=== PATIENT | female | born 1995 | race African-American/Black ===

== ENCOUNTER 2022-12-13 06:28 | Observation (INO) | payer OTHER, SELFPAY ==
[2022-12-13] VITALS (29 sets, daily range): BP systolic 92–131; BP diastolic 36–71; PULSE 88–133; RESP 20; TEMP 36.6; O2SAT 89–100; BMI 41.2
--- NOTE | ~2022-12-13 | US_ITS ---
US OB follow up DATE: 12/13/2022 10:19 INDICATION: Evaluate growth, TIFFANIE and placenta. TECHNIQUE: Real-time imaging and Doppler analysis COMPARISON: None FINDINGS: Live sutton intrauterine gestation, fetus in longitudinal lie, vertex presentation with heart rate of 148 bpm. Anterior placenta without evidence of previa. Amniotic fluid index measures 16.4 cm, within normal range. (5th percentile TIFFANIE: 8.6 cm; 95th percent ile TIFFANIE: 24.2 cm.) Head circumference 28.56 cm; 31 weeks 3 days Biparietal diameter 7.80 cm; 31 weeks 2 days Abdominal circumference 27.15 cm; 31 weeks 2 days Femur length 6.18 cm; 32 weeks 0 days Composite age by Hadlock formula is 31 weeks 4 days +/- 2 weeks 1 day with LILIBETH of 02/10/2023 compared to 02/05/2023 by LMP. Estimated weight is 1779 +/- -267 g. Estimated weight-GP: 18.1% Femur length/BPD 79.25, within normal range of 71.0-87.0 Head circumference/abdominal circumference 1.05, within normal range of 0.96-1.15 Femur length/abdominal circumference 22.76, within normal range of 20.00-24.00 Femur length/head circumference 21.64, slightly above normal range of 19.19-21.30 IMPRESSION: Normal amniotic fluid index of 16.4 cm Anterior placenta, no previa Vertex presentation Estimated gestational age by Hadlock formula is 31 weeks 4 days +/- 2 weeks 1 day with LILIBETH of 02/11/20 23 Estimated weight 1779 +/- 267 g Reviewed, dictated and finalized at [facility]. Reviewed, dictated and finalized at [facility]. IMPRESSION: Normal amniotic fluid index of 16.4 cm Anterior placenta, no previa Vertex presentation Estimated gestational age by Hadlock formula is 31 weeks 4 days +/- 2 weeks 1 d ay with LILIBETH of 02/10/2023 Estimated weight 1779 +/- 267 g
--- NOTE | 2022-12-13 07:22 | OBADM ---
This patient, Bradley Dietz, admitted to the OB room Labor/Delivery/Recovery 106 for observation. Patient/family oriented to hospital policies and general routines including ID bracelet, bed and alarms, visiting hours, pain management, procedures, bathroom and other care routines, personal items, smoking policy, room service/diet, and visiting hours. Patient/Family are encouraged to report perceived risks to care and to ask questions if they do not understand what they are told or what they should do.
[2022-12-13 09:13] LABS: Basophils Percent Auto 0.4 % (0.2-1.2); Eosinophils Absolute Auto 0.1 K/mm3 (0-0.3); Eosinophils Percent Auto 1.7 % (0-4.4); Hematocrit 32.7 % (37.0-47.0); Hemoglobin 10.5 g/dL (12.0-15.0); Immature Granulocyte Absolute 0.07 K/mm3 (0.00-0.031); Immature Granulocyte Percent A 0.8 % (0-0.5); Lymphocytes Absolute Auto 2.67 K/mm3 (0.9-3.2); Mean Corpuscular HGB Conc 32.1 g/dl (32-36); Mean Corpuscular Hemoglobin 28.9 pg (26-34); Mean Corpuscular Volume 90.1 fl (80-100); Mean Platelet Volume 10.3 fl (7.4-10.4); Monocytes Absolute Auto 0.6 K/mm3 (0.1-0.6); Monocytes Percent Auto 7.1 % (2.6-8.5); Neutrophils Absolute Auto 4.8 K/mm3 (1.3-6.7); Platelet Count Result 261 k/mm3 (150-375); Red Blood Count 3.63 M/mm3 (4.2-5.4); White Blood Count 8.3 K/mm3 (4.5-10.0)
[2022-12-13 09:50] LABS: HIV 1/2 Ab P24 Ag Result Negative (Negative)
[2022-12-13 09:58] LABS: Appearance Urine Cloudy (Clear); Bacteria Urine None Seen /hpf; Bilirubin Urine Negative (Negative); Blood Urine Negative (Negative); Color Urine Yellow (Yellow); Glucose Urine UA Negative (Negative); Ketones Urine 2+ mg/dL (Negative); Leukocyte Esterase Ur Trace LEU/UL (Negative); Need Manual Microscopic Reviewed; Nitrate Urine Negative (Negative); Non Pathogenic Casts 0-2; Protein Urine Trace mg/dL (Negative); Specific Grav Ur 1.025 (1.001-1.035); Squamous Epithelial Cell Urine Few /hpf (Few); WBC Urine 0-5 /hpf; pH Urine 6.5 (5.0-9.0)
[2022-12-13 09:59] LABS: Add Urine Microscopic? YES
[2022-12-13 10:44] LABS: Amphetamine Screen Urine Negative (Negative); Barbiturate Screen Urine Negative (Negative); Benzodiazepines Screen Urine Negative (Negative); Cannabinoid Screen Urine Negative (Negative); Cocaine Screen Urine Negative (Negative); Methadone Screen Urine Negative (Negative); Opiate Screen Urine Negative (Negative); Phencyclidine Screen Urine Negative (Negative)
[2022-12-13] MEDS: LACTATED RINGERS 1,000 ML 999 ML IV CONT (10:57)
[2022-12-13] MEDS: TERBUTALINE SULFATE 1 MG/ML VIAL 0.25 MG SUB-Q (11:00)
[2022-12-13] MEDS: NIFEdipine 30 MG TAB.ER.24 PO (12:18)
[2022-12-13 12:23] LABS: Hepatitis B Surface Anti Res Negative
--- NOTE | 2022-12-15 13:18 | P.PNOB_ITS ---
OB - Triage/Final Diagnosis Visit Information Comments/Additional reasons for admission: I have assessed the risk for this patient, Bradley Dietz, and determined that she would benefit from observation care. Evaluation Laboratory results: Laboratory Tests 12/13/22 12/13/22 08:52 08:53 WBC 8.3 RBC 3.63 L Hgb 10.5 L Hct 32.7 L MCV 90.1 MCH 28.9 MCHC 32.1 RDW 13.0 Plt Count 261 MPV 10.3 Immature Gran % (Auto) 0.8 H Neut % (Auto) 58.0 Lymph % (Auto) 32.0 [place] % (Auto) 7.1 Eos % (Auto) 1.7 Baso % (Auto) 0.4 Lymph # (Auto) 2.67 [place] # (Auto) 0.6 Eos # (Auto) 0.1 Baso # (Auto) 0.0 Abs Immat Gran (auto) 0.07 H Absolute Neuts (auto) 4.8 Absolute Nucleated RBC 0.0 Nucleated RBC % 0.0 Urine Color Yellow Urine Appearance Cloudy H Urine pH 6.5 Ur Specific [place] 1.025 Urine Protein Trace Urine Glucose (UA) Negative Urine Ketones 2+ H Ur Blood (Man) Negative Urine Nitrate Negative Urine Bilirubin Negative Urine Urobilinogen 1.0 Add Ur Microanalysis Reviewed Leukocyte Esterase Rfl Trace H Urine RBC 6-10 H Urine WBC 0-5 Ur Squamous Epith Cells Few Urine Bacteria None seen Urine Casts 0-2 Urine Opiates Screen Negative Urine Methadone Screen Negative Ur Barbiturates Screen Negative Ur Phencyclidine Scrn Negative Ur Amphetamine Screen Negative U Benzodiazepines Scrn Negative Urine Cocaine Screen Negative U Cannabinoids Screen Negative Hep Bs Antibody Negative HIV 1&2 Ab/P24 Ag 4thGn Negative Blood Type B Positive Antibody Screen Negative Final Diagnosis (1) Decreased movement: Code(s): O36.8190 - Decreased movements, unspecified trimester, not applicable or unspecified Status: Acute (2) Abdominal pain affecting : Code(s): O26.899 - Other specified related conditions, unspecified trimester; R10.9 - Unspecified abdominal pain Status: Acute
== END 2022-12-13 13:48 | disposition home or self-care (01) ==
PROVIDERS: Admitting Provider Obstetrics & Gynecology; Visit Provider Obstetrics & Gynecology
DX: O36.8130 Decreased fetal movements, third trimester, not applicable or unspecified (principal); O26.893 Other specified pregnancy related conditions, third trimester; R10.9 Unspecified abdominal pain; Z11.4 Encounter for screening for human immunodeficiency virus [HIV]; Z3A.32 32 weeks gestation of pregnancy
CPT/HCPCS: 36415; 76816; 80307; 85025; 86703; 86706; 86850; 86900; 86901; 96360; 96372; A9270; G0378; G0379; G0432; J3105; J7120